=== PATIENT | female | born 1985 | race American Indian/Alaskan Native ===

== ENCOUNTER 2020-04-28 13:46 | Emergency (ER) | payer MEDICAID ==
[2020-04-28 14:33] VITALS: BP 113/71
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
== END 2020-04-28 18:08 | disposition home or self-care (01) ==
LOC: ED 13:46
DX: S29.019A Strain of muscle and tendon of unspecified wall of thorax, initial encounter (principal); S39.012A Strain of muscle, fascia and tendon of lower back, initial encounter; Z79.899 Other long term (current) drug therapy; V49.49XA Driver injured in collision with other motor vehicles in traffic accident, initial encounter; Y93.89 Activity, other specified; Y92.488 Other paved roadways as the place of occurrence of the external cause; Y99.8 Other external cause status
CPT/HCPCS: 72072; 72100; 99283

== ENCOUNTER 2021-11-05 12:12 | Emergency (ER) | payer MEDICAID ==
[2021-11-05 13:09] VITALS: BP 136/80
[2021-11-05] MEDS ORDERED: DEXAMETHASONE 4 MG TAB PO ONE (13:18)
[2021-11-05] MEDS ORDERED: KETOROLAC 30 MG/1 ML INJ IM ONE (13:19)
[2021-11-05] MEDS ORDERED: LIDOCAINE-MPF (1%) 10 MG/1 ML VIAL 5 ML INFILTRATI ONE (13:19)
[2021-11-05] MEDS ORDERED: oxyCODONE /ACETAMINOPHEN 5-325MG TAB PO ONE (13:20)
--- NOTE | 2021-11-05 13:23 | Emergency Department Report ---
ED ENT HPI - General Chief complaint: Dental/Oral Stated complaint: TOOTHACHE/SWOLLEN JAW RT SIDE Time Seen by Provider: 11/05/21 13:14 Source: patient Mode of arrival: Ambulatory Limitations: No Limitations - History of Present Illness Initial comments: 36-year-old black female with no past medical history presents to the emergency department for evaluation of few day history of worsening toothache. She states that she woke up this morning with swelling to her right jaw and increased pain. She denies fever. MD complaint: tooth pain -: days(s) (3) Location: tooth # (3) Severity: severe Severity scale (0 -10): 10 Quality: stabbing, aching Consistency: constant Associated Symptoms: toothache. denies: fever, cough, pain with swallowing, sore throat, tinnitus, rhinorrhea - Related Data Previous Rx's Medication Instructions Recorded Last Taken Type Acetaminophen/Codeine [Tylenol 1 tab PO Q6H PRN #21 tab 11/05/21 Unknown Rx /Codeine # 3 tab] Amoxicillin/Potassium Clav 1 each PO BID 7 Days #14 tab 11/05/21 Unknown Rx [Augmentin 875-125 Tablet] Ketorolac [Toradol] 10 mg PO Q6H PRN #12 tab 11/05/21 Unknown Rx Allergies Allergy/AdvReac Type Severity Reaction Status Date / Time No Known Allergies Allergy Verified 11/05/21 13:10 ED Dental HPI - General Chief complaint: Dental/Oral Stated complaint: TOOTHACHE/SWOLLEN JAW RT SIDE Time Seen by Provider: 11/05/21 13:14 Source: patient Mode of arrival: Ambulatory Limitations: No Limitations - Related Data Previous Rx's Medication Instructions Recorded Last Taken Type Acetaminophen/Codeine [Tylenol 1 tab PO Q6H PRN #21 tab 11/05/21 Unknown Rx /Codeine # 3 tab] Amoxicillin/Potassium Clav 1 each PO BID 7 Days #14 tab 11/05/21 Unknown Rx [Augmentin 875-125 Tablet] Ketorolac [Toradol] 10 mg PO Q6H PRN #12 tab 11/05/21 Unknown Rx Allergies Allergy/AdvReac Type Severity Reaction Status Date / Time No Known Allergies Allergy Verified 11/05/21 13:10 ED Review of Systems ROS: Stated complaint: TOOTHACHE/SWOLLEN JAW RT SIDE Other details as noted in HPI Comment: All other systems reviewed and negative Constitutional: denies: chills, fever ENT: dental pain Respiratory: denies: shortness of breath Cardiovascular: denies: chest pain, palpitations Gastrointestinal: denies: abdominal pain, nausea, vomiting Musculoskeletal: denies: back pain ED Past Medical Hx - Past Medical History Previous Medical History?: Yes Additional medical history: toothache - Surgical History Past Surgical History?: Yes Additional Surgical History: c-sectionx2 - Social History Smoking Status: Never Smoker Substance Use Type: None - Medications Home Medications: Home Medications Medication Instructions Recorded Confirmed Last Taken Type Acetaminophen/Codeine [Tylenol 1 tab PO Q6H PRN #21 tab 11/05/21 Unknown Rx /Codeine # 3 tab] Amoxicillin/Potassium Clav 1 each PO BID 7 Days #14 tab 11/05/21 Unknown Rx [Augmentin 875-125 Tablet] Ketorolac [Toradol] 10 mg PO Q6H PRN #12 tab 11/05/21 Unknown Rx ED Physical Exam - General Limitations: No Limitations General appearance: alert, in no apparent distress - Head Head exam: Present: atraumatic, normocephalic - Expanded Head Exam Expanded 1 - Swelling and tenderness noted - Expanded ENT Exam Expanded Teeth exam: Present: dental caries, dental tenderness # (3), gingival enlargement - Neck Neck exam: Present: normal inspection. Absent: lymphadenopathy - Respiratory Respiratory exam: Absent: respiratory distress - Cardiovascular Cardiovascular Exam: Present: regular rate - GI/Abdominal GI/Abdominal exam: Absent: distended - Back Exam Back exam: Present: normal inspection - Neurological Exam Neurological exam: Present: alert, oriented X3 - Psychiatric Psychiatric exam: Present: normal affect, normal mood - Skin Skin exam: Present: warm, dry, intact, normal color ED Course Vital Signs 11/05/21 11/05/21 12:17 13:06 Temperature 99.6 F 98.8 F Pulse Rate 80 77 Respiratory 18 20 Rate Blood Pressure 151/98 Blood Pressure 136/80 [Right] O2 Sat by Pulse 98 100 Oximetry ED Medical Decision Making - Medical Decision Making 36-year-old black female with no past medical history presents to the emergency department for evaluation of few day history of worsening toothache. She states that she woke up this morning with swelling to her right jaw and increased pain. She denies fever. Exam consistent with dental abscess. Patient was treated with one-time dose of steroids in ER along with Percocet, Toradol, and Rocephin IM. Patient will be discharged home with 7-day course of Augmentin, Toradol for pain, and Tylenol 3 as needed for pain. She is advised to take medications as prescribed and follow-up with dentist as planned. She verbalized understanding of and agreement with plan of care. Critical care attestation.: If time is entered above; I have spent that time in minutes in the direct care of this critically ill patient, excluding procedure time. ED Disposition Clinical Impression: Dental abscess Disposition: HOME / SELF CARE / HOMELESS Is pt being admited?: No Does the pt Need Aspirin: No Condition: Stable Instructions: Dental Abscess, [id number] Additional Instructions: Take medications as prescribed. Follow-up with dentist for further evaluation and management. Prescriptions: Amoxicillin/Potassium Clav [Augmentin 875-125 Tablet] 1 each PO BID 7 Days #14 tab Ketorolac [Toradol] 10 mg PO Q6H PRN #12 tab PRN Reason: Pain Acetaminophen/Codeine [Tylenol /Codeine # 3 tab] 1 tab PO Q6H PRN #21 tab PRN Reason: Pain , Severe (7-10) Referrals: [facility] [Outside] - 3-[address] [facility] [Outside] - 3-5 Days Time of Disposition: 13:23
== END 2021-11-05 13:57 | disposition home or self-care (01) ==
LOC: ED 12:12
DX: K04.7 Periapical abscess without sinus (principal); Z98.890 Other specified postprocedural states; Z79.899 Other long term (current) drug therapy
CPT/HCPCS: 96372; 99282; J0696; J1885; J3490; J8540